=== PATIENT | male | born 1990 | race Caucasian/White ===

== ENCOUNTER → 2021-07-08 10:32 | Outpatient (BNVA) | payer OTHER, SELFPAY | PROVIDERS: Visit Provider Nurse Practitioner Family | DX: Z20.822 Contact with and (suspected) exposure to COVID-19 (principal) | CPT/HCPCS: 87635 ==

== ENCOUNTER 2024-07-03 21:40 | Emergency (ER) | payer OTHER, MEDICAID, SELFPAY ==
[2024-07-03 21:47] VITALS: BP 136/89; PULSE 83; RESP 16; O2SAT 98; BMI 26.8
--- NOTE | 2024-07-03 21:54 | ED_ITS ---
HPI - URI/Sore Throat General: Chief Complaint: Upper Respiratory Infection Stated Complaint: Fever,Cold Chills Time Seen by Provider: 07/03/24 21:53 History of Present Illness: 33-year-old male patient comes in today with illness starting today. Patient appears nontoxic. Patient appears mildly unwell. Patient denies any chronic medical problems. Associated symptoms: Reports fever(s) Related Data Home Medications Medication Instructions Recorded Confirmed No Known Home Medications 07/08/21 07/08/21 Allergies Allergy/AdvReac Type Severity Reaction Status Date / Time No Known Allergies Allergy Unverified 07/08/21 09:54 Review of Systems General: Reports: 10 or more systems reviewed and unremarkable except in HPI and below Const: Reports: fever(s) and malaise Resp: Reports: non-productive cough Physical Exam Const: COMMON NORMALS: alert HENMT: COMMON NORMALS: normocephalic HEAD & SCALP: normocephalic Neck/C-Spine: COMMON NORMALS: full ROM Resp: COMMON NORMALS: normal respiratory effort and clear to auscultation bilaterally AUSCULTATION: clear to auscultation bilaterally Cardio: COMMON NORMALS: regular rate RATE: regular rate GI: COMMON NORMALS: non-tender Extremity: COMMON NORMALS: full ROM Neuro: SENSORIUM/ORIENTATION: Yes alert Skin: COMMON NORMALS: turgor normal GENERAL SKIN EXAM: turgor normal Course Vital Signs: Vital signs: Vital Signs Pulse Rate 85 07/03/24 22:24 Respiratory Rate 16 07/03/24 22:24 Blood Pressure 139/82 07/03/24 22:24 Pulse Oximetry 98 07/03/24 22:24 Oxygen Delivery Me thod Room Air 07/03/24 21:47 MDM - URI/Sore Throat Medical Decision Making 33-year-old male patient comes in today with illness starting this afternoon. Patient appears nontoxic. Respirations are even lungs are clear to auscultation. Skin is warm and dry. Vital signs are normal. Differential diagnosis includes but not limited to upper respiratory infection, COVID-19, influenza, allergic rhinitis. COVID test was negative. Reviewed exam with patient with recommendation for treatment for viral illness. Patient reports understanding agreed to plan. Lab Data Laboratory Results SARS-CoV-2 Ag (Rapid) negative (Negative) 07/03/24 22:05 No radiology studies performed this visit Discharge Plan Discharge Patient Disposition: Home Clinical Impression: Upper respiratory infection Qualifiers: URI type: unspecified viral URI Qualified Code(s): J06.9 - Acute upper respiratory infection, unspecified Condition: Stable Prescriptions: No Action No Known Home Medications Discharge Orders: Discharge ED (Routine); Ordered 07/03/24 Ordered By: Umesh Dolan Discharge Diet: Usual diet Discharge Activity: Increase activity as tolerated Patient Instructions: Upper Respiratory Infection (ED) Activity Restrictions/Additional Instructions: Home and rest. Drink plenty water and fluids. Use acetaminophen and ibuprofen for pain and fever. You may use [id number] cough and cold medicine for fu rther symptom relief. Follow-up with primary care as needed. You may want to retest for COVID with the [id number] test in 24 hours to verify negative result. Return to ER for worsening symptoms such as increasing shortness of breath or severe chest pain. Coding Level of Care Code ED Emergency Spill Response Technician for Terrance Castaneda
[2024-07-03 22:24] VITALS: BP 139/82; PULSE 85; RESP 16; O2SAT 98
[2024-07-03 22:28] LABS: SARS Covid-2 Antigen negative (Negative)
[2024-07-03 22:57] VITALS: BP 139/82; PULSE 80; O2SAT 98
== END 2024-07-03 22:58 | disposition home or self-care (01) ==
PROVIDERS: Emergency Provider Nurse Practitioner Family
DX: J06.9 Acute upper respiratory infection, unspecified (principal); Z11.52 Encounter for screening for COVID-19
CPT/HCPCS: 87426; 99283